=== PATIENT | female | born 1935 | race Caucasian/White ===

== ENCOUNTER 2021-01-01 12:07 | Emergency (ER) | payer MEDICARE, OTHER | END 2021-01-01 14:35 | disposition home or self-care (01) | LOC: CSHERS 12:07 | DX: M25.561 Pain in right knee (principal); M25.562 Pain in left knee; F03.90 Unspecified dementia, unspecified severity, without behavioral disturbance, psychotic disturbance, mood disturbance, and anxiety; I10 Essential (primary) hypertension; Z79.899 Other long term (current) drug therapy; Z79.82 Long term (current) use of aspirin ==

== ENCOUNTER 2021-08-14 11:02 | Emergency (ER) | payer MEDICARE, OTHER ==
[2021-08-14] MEDS ORDERED: Lidocaine 1% w/Epinephrine 1:100K 20 ML VIAL ONE (12:21)
[2021-08-14] MEDS ORDERED: Morphine 4 MG/ML VIAL ONE (12:21)
[2021-08-14] MEDS ORDERED: Ketorolac Tromethamine 30 MG/ML VIAL ONE (12:22)
== END 2021-08-14 11:48 | disposition left against medical advice (07) ==
LOC: CSHERS 11:02
DX: Z53.21 Procedure and treatment not carried out due to patient leaving prior to being seen by health care provider (principal)
CPT/HCPCS: J1885; J2270

== ENCOUNTER 2021-10-20 21:49 | Emergency (ER) | payer MEDICARE, OTHER | END 2021-10-20 22:29 | disposition home or self-care (01) | LOC: CSHERS 21:49 | DX: Z00.00 Encounter for general adult medical examination without abnormal findings (principal); I12.9 Hypertensive chronic kidney disease with stage 1 through stage 4 chronic kidney disease, or unspecified chronic kidney disease; N18.9 Chronic kidney disease, unspecified | CPT/HCPCS: 99282 ==

== ENCOUNTER 2021-12-30 12:44 | Emergency (ER) | payer OTHER, MEDICARE ==
[2021-12-30] MEDS ORDERED: Boostrix 0.5 ML (Tdap) VIAL (>/=7 yrs of age) ONE (13:58)
== END 2021-12-30 14:26 | disposition home or self-care (01) ==
LOC: CSHERS 12:44
DX: S02.2XXA Fracture of nasal bones, initial encounter for closed fracture (principal); S00.83XA Contusion of other part of head, initial encounter; R91.1 Solitary pulmonary nodule; I12.9 Hypertensive chronic kidney disease with stage 1 through stage 4 chronic kidney disease, or unspecified chronic kidney disease; N18.9 Chronic kidney disease, unspecified; Z23 Encounter for immunization; W01.198A Fall on same level from slipping, tripping and stumbling with subsequent striking against other object, initial encounter; Y92.129 Unspecified place in nursing home as the place of occurrence of the external cause
CPT/HCPCS: 70450; 70486; 72125; 90471; 90715

== ENCOUNTER 2022-05-05 17:07 | Emergency (ER) | payer MEDICARE ==
[~2022-05-05 17:07] MED LIST: Iopamidol 300 61% 100 ML VIAL FS ONE
[2022-05-05 17:58] LABS: #Basophils 0.1 10x3/uL (0.0-0.2); #Eosinphils 0.3 10x3/uL (0.0-0.5); #Monocytes 0.8 10x3/uL (0.0-1.1); #Neutrophils 10.4 10x3/uL (1.5-8.4); %Basophils 0.9 % (0.0-2.0); %Eosinophils 2.5 % (0.0-6.0); %Lymphocytes 7.2 % (18.0-47.0); %Monocytes 6.4 % (0.0-10.0); %Neutrophils 82.4 % (40.0-75.0); Mean Corpuscular HGB CONC 32.5 g/dL (32.0-36.0); Mean Corpuscular Hemoglobin 30.9 pg (27.0-33.0); Mean Corpuscular Volume 95.1 fl (81.6-98.3); Mean Platelet Volume 10.1 fl (7.4-10.4); Platelet Count 379 10x3/uL (150-450); RBC Distribution Width 15.1 % (11.5-14.5); Red Blood Cell (RBC) Count 3.88 10x6/uL (3.90-5.03); White Blood Cell (WBC) Count 12.6 10x3/uL (3.5-10.5)
[2022-05-05 18:03] LABS: Anion Gap 17 mmol/L (10-20); BUN (Urea Nitrogen) 41 mg/dL (9.8-20.1); Calc. Creatinine Clearance 0 mL/min (70-130); Calcium 9.6 mg/dL (7.8-10.44); Carbon Dioxide 21 mmol/L (23-31); Chloride 104 mmol/L (98-107); Estimated GFR 36; Glucose 115 mg/dL (83-110); Potassium 5.2 mmol/L (3.5-5.1); Sodium 137 mmol/L (136-145)
== END 2022-05-05 20:15 | disposition home or self-care (01) ==
LOC: CSHERS 17:07
DX: R91.1 Solitary pulmonary nodule (principal); K86.89 Other specified diseases of pancreas; D72.829 Elevated white blood cell count, unspecified; I10 Essential (primary) hypertension; W18.30XA Fall on same level, unspecified, initial encounter
CPT/HCPCS: 36415; 70450; 71260; 72125; 74177; 80048; 84484; 85025; 93005; Q9967